=== PATIENT | female | born 1995 | race Caucasian/White ===

== ENCOUNTER → 2017-05-28 | Outpatient (CLI) | payer MEDICAID | LOC: HPND 11:06 | PROVIDERS: ATTEND Obstetrics & Gynecology | DX: O35.1XX0 Maternal care for (suspected) chromosomal abnormality in fetus, not applicable or unspecified (principal); O35.8XX0 Maternal care for other (suspected) fetal abnormality and damage, not applicable or unspecified; O28.5 Abnormal chromosomal and genetic finding on antenatal screening of mother | CPT/HCPCS: 76815 ==

== ENCOUNTER 2017-08-09 20:52 | Emergency (ER) | payer MEDICAID ==
[~2017-08-09] VITALS: Ht 165.1 cm; Wt 96.4 kg
[2017-08-09 21:10] VITALS: BP 121/62; PULSE 69; RESP 20; TEMP 98.8; O2SAT 97
[2017-08-09] MEDS ORDERED: SE-NCHW CHEW (21:23)
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
[2017-08-09 23:28] VITALS: BP 117/72; PULSE 77; RESP 16; O2SAT 99
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
== END 2017-08-09 23:46 | disposition home or self-care (01) ==
LOC: PHED 20:52
DX: O9A.213 Injury, poisoning and certain other consequences of external causes complicating pregnancy, third trimester (principal); S09.90XA Unspecified injury of head, initial encounter; W20.8XXA Other cause of strike by thrown, projected or falling object, initial encounter; Y92.810 Car as the place of occurrence of the external cause; Z3A.34 34 weeks gestation of pregnancy
CPT/HCPCS: 70450; 99283